=== PATIENT | female | born 2000 | race Caucasian/White ===

== ENCOUNTER → 2021-10-19 | Emergency (ER) | payer OTHER ==
[~2021-10-19] MED LIST: IBUPROFEN600 MG PO; NORFLEX 100 MG100 MG PO
== END | disposition home or self-care (01) ==
LOC: ER1 18:40
DX: M54.50 Low back pain, unspecified (principal); F17.290 Nicotine dependence, other tobacco product, uncomplicated
CPT/HCPCS: 81001; 96372; 99283; J1885; J2360